=== PATIENT | male | born 1945 | race Caucasian/White ===

== ENCOUNTER 2021-10-22 13:30 | Inpatient (IN) | payer MEDICARE ==
[2021-10-24 09:29] VITALS: BMI 28.2
[2021-10-25] MEDS ORDERED: EPINEPHrine 1 MG/ML AMP ONE (10:33)
[2021-10-25] MEDS ORDERED: Bupivacaine PF 0.5% 30 ML VIAL ONE (10:33)
[2021-10-25] MEDS ORDERED: PROPOFOL 20 ML ONE (10:53)
[2021-10-25] MEDS ORDERED: Rocuronium Bromide 10 MG/ML (10ML VIAL) ONE (10:53)
[2021-10-25] MEDS ORDERED: Lidocaine 1% PF 5 ML VIAL ONE (10:53)
[2021-10-25] MEDS ORDERED: Fentanyl 100 MCG/2 ML VIAL ONE ×2 (10:53→14:03)
[2021-10-25] MEDS ORDERED: ceFOXitin 1 GM VIAL ONE (11:02)
[2021-10-25] MEDS ORDERED: PHENYLEPHRINE-NS 100 MCG/ML 10 ML SYRINGE ONE (11:39)
[2021-10-25] MEDS ORDERED: ePHEDrine Sulfate 50 MG/10 ML VIAL ONE (11:39)
[2021-10-25] MEDS ORDERED: Glycopyrrolate 0.2 MG/ML 5 ML SYRINGE ONE (11:45)
[2021-10-25] MEDS ORDERED: Ondansetron PF 4 MG/2 ML Vial ONE (13:09)
[2021-10-25] MEDS ORDERED: Promethazine HCl 25 MG/ML VIAL IM PRN ×2 (13:50→14:02)
[2021-10-25] MEDS ORDERED: Ondansetron HCl/PF 4 MG/2 ML Vial IVP PRN (13:50)
[2021-10-25] MEDS ORDERED: Promethazine HCl 25 MG/ML VIAL IVPB PRN (13:50)
[2021-10-25] MEDS ORDERED: Morphine 2 MG/ML VIAL SLOW IVP PRN (14:02)
[2021-10-25] MEDS ORDERED: hydrALAZINE 20 MG/ML VIAL SLOW IVP PRN (14:02)
[2021-10-25] MEDS ORDERED: Ondansetron PF 4 MG/2 ML Vial IVP PRN (14:02)
[2021-10-25] MEDS ORDERED: Morphine 4 MG/ML VIAL SLOW IVP PRN (14:02)
[2021-10-25] MEDS ORDERED: HYDROcodone/Acetaminophen 5/325 mg Tablet PO PRN ×2 (14:06)
[2021-10-25] MEDS: Sodium Chloride 0.9% 1,000 ML IV SCH ×2 (15:27→21:29)
[2021-10-25] MEDS: Ketorolac Tromethamine 30 MG/ML VIAL IVP SCH ×2 (17:33→23:56)
[2021-10-25] MEDS ORDERED: Famotidine 20 MG TAB PO SCH (21:00)
[2021-10-25] MEDS ORDERED: Famotidine/PF 20 mg/2ml Vial SLOW IVP PRN (21:00)
[2021-10-25] MEDS: cefOXitin Sodium/Dextrose,Iso 2 GM in Premix Bag 1 BAG IVPB SCH (21:19)
[2021-10-25] MEDS: Enoxaparin Sodium 40 MG/0.4 ML SYRINGE SC SCH (21:19)
[2021-10-26] MEDS: cefOXitin Sodium/Dextrose,Iso 2 GM in Premix Bag 1 BAG IVPB SCH (04:30)
[2021-10-26] MEDS: Ketorolac Tromethamine 30 MG/ML VIAL IVP SCH ×4 (05:38→23:52)
[2021-10-26 06:38] LABS: #Eosinphils 0.7 10x3/uL (0.0-0.5); #Monocytes 0.6 10x3/uL (0.0-1.1); #Neutrophils 5.1 10x3/uL (1.5-8.4); %Basophils 0.6 % (0.0-2.0); %Eosinophils 9.9 % (0.0-6.0); %Monocytes 8.3 % (0.0-10.0); %Neutrophils 71.9 % (40.0-75.0); Hemoglobin 7.9 g/dL (13.5-17.5); Mean Corpuscular HGB CONC 28.9 g/dL (32.0-36.0); Mean Corpuscular Hemoglobin 22.3 pg (27.0-33.0); Mean Corpuscular Volume 77.1 fl (81.2-95.1); Mean Platelet Volume 10.3 fl (7.4-10.4); Platelet Count 170 10x3/uL (150-450); RBC Distribution Width 23.8 % (11.5-14.5); Red Blood Cell (RBC) Count 3.54 10x6/uL (4.32-5.72); White Blood Cell (WBC) Count 7.1 10x3/uL (3.5-10.5)
[2021-10-26 06:50] LABS: Anion Gap 11 mmol/L (10-20); BUN (Urea Nitrogen) 16 mg/dL (8.4-25.7); Calc. Creatinine Clearance 72 mL/min (70-130); Calcium 8.3 mg/dL (7.8-10.44); Carbon Dioxide 21 mmol/L (23-31); Chloride 108 mmol/L (98-107); Estimated GFR 66; Glucose 174 mg/dL (83-110); Sodium 136 mmol/L (136-145)
[2021-10-26] MEDS: Sodium Chloride 0.9% 1,000 ML IV SCH (07:57)
[2021-10-26] MEDS ORDERED: Pantoprazole 40 MG VIAL ONE ×2 (09:06)
[2021-10-26] MEDS: Pantoprazole 40 MG VIAL IVP SCH (09:12)
[2021-10-26] MEDS: metFORMIN 500 MG TAB PO SCH (16:55)
[2021-10-26] MEDS ORDERED: diphenhydrAMINE 25 MG CAP PO PRN (17:09)
[2021-10-26] MEDS: Enoxaparin Sodium 40 MG/0.4 ML SYRINGE SC SCH (21:02)
[2021-10-27] MEDS: Ketorolac Tromethamine 30 MG/ML VIAL IVP SCH ×2 (05:43→12:14)
[2021-10-27] MEDS: metFORMIN 500 MG TAB PO SCH (07:59)
[2021-10-27] MEDS: Pantoprazole 40 MG VIAL IVP SCH (07:59)
[2021-10-27 08:21] VITALS: BP 126/61; TEMP 98.6
== END 2021-10-27 14:34 | disposition home or self-care (01) | DRG 331 ==
LOC: CSHERHOLD 10-25 07:49 → CSHTELE 10-25 13:29 → EDSTATUS 10-25 13:30
PROVIDERS: ADMIT Surgery; ATTEND Surgery
PROC: 0DTF0ZZ Resection of Right Large Intestine, Open Approach (ICD-10-PCS; principal; 2021-10-25)
PROC: 0DJD4ZZ Inspection of Lower Intestinal Tract, Percutaneous Endoscopic Approach (ICD-10-PCS; 2021-10-25)
DX: C18.2 Malignant neoplasm of ascending colon (principal); I48.91 Unspecified atrial fibrillation; Z98.890 Other specified postprocedural states
CPT/HCPCS: 36415; 36416; 80048; 80053; 83036; 85025; 85027; 86850; 86900; 86901; 87811; 88309; A4649; C9113; J0171; J0694; J1650; J1885; J2270; J2405; J2704; J3010; J7050; S0020

== ENCOUNTER 2021-10-22 13:38 | Outpatient (CLI) | payer MEDICARE ==
[2021-10-22 14:55] LABS: Hemoglobin 8.6 g/dL (13.5-17.5); Mean Corpuscular HGB CONC 28.7 g/dL (32.0-36.0); Mean Corpuscular Hemoglobin 22.2 pg (27.0-33.0); Mean Corpuscular Volume 77.3 fl (81.2-95.1); Mean Platelet Volume 9.8 fl (7.4-10.4); Platelet Count 145 10x3/uL (150-450); RBC Distribution Width 24.1 % (11.5-14.5); Red Blood Cell (RBC) Count 3.88 10x6/uL (4.32-5.72); White Blood Cell (WBC) Count 4.5 10x3/uL (3.5-10.5)
[2021-10-22 15:02] LABS: ALT (SGPT) 34 U/L (8-55); AST (SGOT) 49 U/L (5-34); Albumin 3.6 g/dL (3.4-4.8); Alkaline Phosphatase 257 U/L (40-110); Anion Gap 11 mmol/L (10-20); BUN (Urea Nitrogen) 16 mg/dL (8.4-25.7); Bilirubin, Total 0.7 mg/dL (0.2-1.2); Calc. Creatinine Clearance 0 mL/min (70-130); Calcium 9.1 mg/dL (7.8-10.44); Carbon Dioxide 23 mmol/L (23-31); Chloride 110 mmol/L (98-107); Estimated GFR 92; Globulin 2.9 g/dL (2.4-3.5); Glucose 98 mg/dL (83-110); Potassium 4.1 mmol/L (3.5-5.1); Protein, Total 6.5 g/dL (5.8-8.1); Sodium 140 mmol/L (136-145)
[2021-10-22 20:02] LABS: Hemoglobin A1c 5.3 % (4.0-6.0)
== END 2021-10-22 13:39 | disposition home or self-care (01) ==
LOC: CSHLAB 13:38
PROVIDERS: ATTEND Surgery
DX: Z01.812 Encounter for preprocedural laboratory examination (principal); Z20.822 Contact with and (suspected) exposure to COVID-19; C18.2 Malignant neoplasm of ascending colon
CPT/HCPCS: 80053; 83036; 85027; 87811

== ENCOUNTER 2024-10-12 23:22 | Emergency (ER) | payer MEDICARE ==
[~2024-10-12 23:22] MED LIST: Iopamidol 370 76% 100 ML VIAL ONE
[2024-10-12] MEDS ORDERED: Amiodarone In Dextrose 200 ML ONE (23:36)
[2024-10-13 00:10] LABS: Platelet Count 87 10x3/uL (150-450)
[2024-10-13 00:11] LABS: Hematocrit 47.0 % (38.8-50.0); Hemoglobin 15.6 g/dL (13.5-17.5); Mean Corpuscular Hemoglobin 33.8 pg (27.0-33.0); Mean Corpuscular Volume 101.7 fL (81.2-95.1); Red Blood Cell (RBC) Count 4.62 10x6/uL (4.32-5.72); White Blood Cell (WBC) Count 10.30 10x3/uL (3.5-10.5)
[2024-10-13] MEDS ORDERED: Cefepime 2 GM VIAL ONE (00:13)
[2024-10-13 00:19] LABS: INR-International Normal Ratio 2.6; PTT 43.9 sec (22.0-33.0); Prothrombin Time 26.1 sec (9.5-12.1)
[2024-10-13 00:22] LABS: Troponin I 0.056 ng/mL (< 0.028)
[2024-10-13 00:25] LABS: ALT (SGPT) 31 U/L (Less than 45); AST (SGOT) 57 U/L (11-34); Albumin 2.4 g/dL (3.1-4.5); Alkaline Phosphatase 134 U/L (40-110); Anion Gap 17 mmol/L (10-20); BUN (Urea Nitrogen) 63 mg/dL (8.4-25.7); Bilirubin, Total 8.7 mg/dL (0.3-1.2); Calc. Creatinine Clearance 0 mL/min (70-130); Calcium 10.0 mg/dL (7.8-10.44); Carbon Dioxide 16 mmol/L (23-31); Chloride 103 mmol/L (98-107); Globulin 3.6 g/dL (2.4-3.5); Glucose 161 mg/dL (83-110); Magnesium 2.4 mg/dL (1.6-2.6); Potassium 5.1 mmol/L (3.5-5.1); Sodium 131 mmol/L (136-145)
[2024-10-13 00:29] LABS: ALV-art Gradient 482.925 mmHg (0-20); Actual Bicarbonate (HCO3a) 26.2 mEq/L (22-28); Analyzer IN Cardio CS ER; Base Excess (BEa) -1.3 mEq/L (-2.0 to +3.0); CO2 Tension 54.3 mmHg (35.0-45.0); Calcium, Ionized (arterial) 1.22 mmol/L (1.12-1.30); Critical Notified By: CP.PH; Hematocrit-ABG 49 % (42.0-52.0); Hemoglobin (Hb) 16.6 g/dL (14.0-18.0); O2 Tension (PaO2), arterial 162.2 mmHg (> 60.0); Potassium - ABG Lab 4.36 mmol/L (3.70-5.30); Puncture Site Left Brachial artery; RapidComm Collect By M.Collins,RRT; pH, Arterial 7.301 (7.35-7.45)
[2024-10-13] MEDS ORDERED: VANCOMYCIN 1.75 GM/350 ML BAG 1.75 GM in Premix 1 BAG IVPB SCH (00:30)
[2024-10-13] MEDS ORDERED: Furosemide 40 MG (4 mL) VIAL ONE (00:53)
[2024-10-13 00:59] LABS: Anisocytosis SLIGHT = 6-15 cells (100X) (0-5/hpf); Burr Cells SLIGHT = 2-5 cells (100X) (0-1/hpf); MDiff Complete? YES; Macrocytosis SLIGHT = 6-15 cells (100X) (0-5/hpf); Ovalocytes SLIGHT = 2-5 cells (100X) (0-1/hpf); Platelet Adequacy Comment Appears Decreased; Toxic Granulation SLIGHT
[2024-10-13 03:15] LABS: Glucose, Urine (Dipstick) Normal (Negative); Leukocyte 25 (Negative); Protein, Urine (Dipstick) 100 mg/dl (Neg-Trace); Specific Gravity, Urine 1.025 (1.005-1.030)
[2024-10-13 03:16] LABS: Bacteria/HPF 1+ HPF (None Seen); CAUTI Indications for Culture Pelvic or flank pain; RBC/HPF 0-3 HPF (0-3); WBC/HPF 0-3 HPF (0-3)
[2024-10-13 03:25] LABS: Urine Culture Reflex No No
== END 2024-10-13 02:05 | disposition short-term general hospital (02) ==
LOC: CSHERS 23:22 → EEVIPCON 23:22 → CSHERS 10-13 02:05
DX: A41.9 Sepsis, unspecified organism (principal); R65.21 Severe sepsis with septic shock; J96.01 Acute respiratory failure with hypoxia; I50.9 Heart failure, unspecified; Z55.6 Problems related to health literacy
CPT/HCPCS: 31500; 36600; 70450; 71045; 71275; 81001; 82805; 83605; 83735; 83880; 84484; 85610; 85730; 87040; 87086; 87428; 93005; 93922; 94002; 94760; J0169; J0283; J0692; J1940; J3375; Q9967; 51702; 80053; 84443; 85025; 93010; 96365; 96366; 96368; 96375; 96376; 99292